=== PATIENT | female | born 1995 | race Caucasian/White ===

== ENCOUNTER 2020-08-23 01:45 | Observation (INO) | payer MEDICAID ==
[~2020-08-23] VITALS: Ht 160 cm; Wt 122.5 kg
[2020-08-23] MEDS ORDERED: FOLI20CA PO (02:26)
[2020-08-23] MEDS ORDERED: ASPI-1497 PO (02:26)
[2020-08-23] MEDS ORDERED: PREN-182 PO (02:26)
== END 2020-08-23 03:50 | disposition home or self-care (01) ==
LOC: ER 01:45 → 8 EST LDRP 02:12
PROVIDERS: ADMIT Obstetrics & Gynecology; ATTEND Obstetrics & Gynecology
DX: O26.893 Other specified pregnancy related conditions, third trimester (principal); R10.10 Upper abdominal pain, unspecified; Z3A.28 28 weeks gestation of pregnancy
CPT/HCPCS: 59025; G0378; 99281

== ENCOUNTER 2021-09-18 03:52 | Emergency (ER) | payer MEDICAID, OTHER ==
[~2021-09-18] VITALS: Ht 157.5 cm; Wt 113.0 kg
[~2021-09-18 03:52] MED LIST: ASPI-1497 PO; FOLI20CA PO; IBUP-2028 PO; PREN-182 PO; T3 PO
[2021-09-18] MEDS ORDERED: MAGNESIUM/ALUMINUM HYDROXIDE/SIMETHICONE 30ML UDC PO STA (04:55)
[2021-09-18] MEDS ORDERED: FAMOTIDINE 20MG/2ML VIAL IV STA (04:55)
[2021-09-18] MEDS ORDERED: ONDANSETRON HCL 4MG/2ML INJ IV STA ×2 (04:55→07:05)
[2021-09-18] MEDS ORDERED: SODIUM CHLORIDE 0.9% 1,000 ML IV ONE (05:00)
[2021-09-18 05:30] LABS: BASOPHILS % 0.6 % (0.0-2.0); EOSINOPHILS % 0.4 % (0.0-5.0); HEMATOCRIT. 39.5 % (36.0-48.0); HEMOGLOBIN. 13.2 g/dL (12.0-16.0); LYMPHOCYTES % 12.2 % (20.0-50.0); MEAN CORPUSCULAR HEMOGLOBIN 28.1 pg (28.0-32.0); MEAN PLATELET VOLUME 7.9 fl (7.4-10.4); MONOCYTES % 6.1 % (2.0-8.0); NEUTROPHILS % 80.7 % (40.0-76.0); PLATELET 305 x1000/uL (130-400); RED CELL DISTRIBUTION WIDTH 14.4 % (11.6-14.6)
[2021-09-18 05:39] LABS: CHLORIDE 104 mEq/L (98-107); CLARITY URINE CLEAR (CLEAR); COLOR URINE YELLOW (YELLOW); KETONES URINE NEGATIVE (NEGATIVE); LEUKOCYTE ESTERASE URINE 1+ (NEGATIVE); NITRITE URINE NEGATIVE (NEGATIVE); OCCULT BLOOD URINE NEGATIVE (NEGATIVE); PROTEIN URINE NEGATIVE (NEGATIVE); SPECIFIC GRAVITY URINE 1.023 (1.005-1.030); UROBILINOGEN URINE 0.2 E.U./dL (0.2-1.0)
[2021-09-18 05:47] LABS: HCG SCREEN NEGATIVE
[2021-09-18 05:51] LABS: *AMPHETAMINES SCREEN URINE NEGATIVE (NEGATIVE); *BARBITURATES SCREEN URINE NEGATIVE (NEGATIVE)
[2021-09-18 05:52] LABS: *BENZODIAZEPINES SCREEN URINE NEGATIVE (NEGATIVE); *COCAINE SCREEN URINE NEGATIVE (NEGATIVE); CANNABINOID URINE SCREEN NEGATIVE (NEGATIVE); METHADONE URINE SCREEN NEGATIVE (NEGATIVE); OPIATES URINE SCREEN NEGATIVE (NEGATIVE); PHENCYCLIDINE URINE SCREEN NEGATIVE (NEGATIVE)
[2021-09-18] MEDS ORDERED: KETOROLAC 30MG/ML VIAL IV STA (07:05)
[2021-09-18 07:23] VITALS: BP 138/88
[2021-09-18] MEDS ORDERED: IBUP-2029 MT (07:55)
== END 2021-09-18 08:56 | disposition home or self-care (01) ==
LOC: ER 03:52
DX: K80.50 Calculus of bile duct without cholangitis or cholecystitis without obstruction (principal)
CPT/HCPCS: 36415; 76705; 80053; 80305; 81003; 81025; 83690; 84703; 85025; 96361; 96374; 96375; 96376; 99284; J1885; J2405; J3490; J7030

== ENCOUNTER 2021-11-08 15:58 | Emergency (ER) | payer MEDICAID, OTHER ==
[~2021-11-08] VITALS: Ht 160 cm; Wt 112.0 kg
[~2021-11-08 15:58] MED LIST changes: +IBUP-2029 MT
[2021-11-08] MEDS ORDERED: MAGNESIUM/ALUMINUM HYDROXIDE/SIMETHICONE 30ML UDC PO STA (17:35)
[2021-11-08] MEDS ORDERED: ACETAMINOPHEN 325MG TABLET PO STA (17:35)
[2021-11-08] MEDS ORDERED: VISCOUS LIDOCAINE 2% 15 ML UDC PO STA (17:35)
[2021-11-08] MEDS ORDERED: ONDANSETRON 4MG ODT PO ONE (17:45)
[2021-11-08 19:24] LABS: CLARITY URINE CLEAR (CLEAR); COLOR URINE YELLOW (YELLOW); KETONES URINE TRACE (NEGATIVE); LEUKOCYTE ESTERASE URINE 1+ (NEGATIVE); NITRITE URINE NEGATIVE (NEGATIVE); OCCULT BLOOD URINE NEGATIVE (NEGATIVE); PH URINE 7.5 (4.5-8.0); PROTEIN URINE TRACE (NEGATIVE); SPECIFIC GRAVITY URINE 1.025 (1.005-1.030)
[2021-11-08 19:42] LABS: BASOPHILS % 0.5 % (0.0-2.0); EOSINOPHILS % 0.1 % (0.0-5.0); HEMATOCRIT. 40.5 % (36.0-48.0); HEMOGLOBIN. 13.6 g/dL (12.0-16.0); LYMPHOCYTES % 11.5 % (20.0-50.0); MEAN CORPUSCULAR HEMOGLOBIN 28.2 pg (28.0-32.0); MEAN CORPUSCULAR VOLUME 83.8 fL (81.0-99.0); MEAN PLATELET VOLUME 7.5 fl (7.4-10.4); MONOCYTES % 3.3 % (2.0-8.0); NEUTROPHILS % 84.6 % (40.0-76.0); PLATELET 289 x1000/uL (130-400); RED BLOOD CELL COUNT 4.84 mill/uL (4.2-5.4); RED CELL DISTRIBUTION WIDTH 13.9 % (11.6-14.6)
[2021-11-08 19:47] LABS: CHLORIDE 106 mEq/L (98-107)
[2021-11-08 19:51] LABS: HCG SCREEN NEGATIVE
[2021-11-08] MEDS ORDERED: IBUP-2028 MT (20:39)
[2021-11-08 21:18] VITALS: BP 132/84
== END 2021-11-08 21:18 | disposition home or self-care (01) ==
LOC: ER 16:05
DX: K80.20 Calculus of gallbladder without cholecystitis without obstruction (principal); R03.0 Elevated blood-pressure reading, without diagnosis of hypertension
CPT/HCPCS: 36415; 76705; 80053; 81003; 81025; 83690; 84703; 85025; 99284; Q0162

== ENCOUNTER 2021-12-11 15:37 | Emergency (ER) | payer BC, MEDICAID ==
[~2021-12-11] VITALS: Ht 172.7 cm; Wt 125.0 kg
[~2021-12-11 15:37] MED LIST changes: +IBUP-2028 MT
[2021-12-11] MEDS ORDERED: ACETAMINOPHEN 325MG TABLET PO ONE (16:30)
[2021-12-11 16:40] LABS: CLARITY URINE CLOUDY (CLEAR); COLOR URINE YELLOW (YELLOW); KETONES URINE TRACE (NEGATIVE); LEUKOCYTE ESTERASE URINE 2+ (NEGATIVE); NITRITE URINE NEGATIVE (NEGATIVE); OCCULT BLOOD URINE NEGATIVE (NEGATIVE); PROTEIN URINE NEGATIVE (NEGATIVE); SPECIFIC GRAVITY URINE 1.024 (1.005-1.030)
[2021-12-11 16:49] LABS: BASOPHILS % 1.1 % (0.0-2.0); EOSINOPHILS % 1.6 % (0.0-5.0); HEMATOCRIT. 38.5 % (36.0-48.0); HEMOGLOBIN. 13.1 g/dL (12.0-16.0); LYMPHOCYTES % 28.1 % (20.0-50.0); MEAN CORPUSCULAR HEMOGLOBIN 28.9 pg (28.0-32.0); MEAN CORPUSCULAR VOLUME 84.9 fL (81.0-99.0); MEAN PLATELET VOLUME 7.5 fl (7.4-10.4); MONOCYTES % 7.4 % (2.0-8.0); NEUTROPHILS % 61.8 % (40.0-76.0); PLATELET 290 x1000/uL (130-400); RED BLOOD CELL COUNT 4.53 mill/uL (4.2-5.4)
[2021-12-11 16:57] LABS: CHLORIDE 108 mEq/L (98-107)
[2021-12-11 17:21] LABS: B-HCG QUANTITATIVE 1292 mIU/mL (<3)
[2021-12-11] MEDS ORDERED: CEPH500C2 MT (18:41)
[2021-12-11 19:19] VITALS: BP 124/78
== END 2021-12-11 19:23 | disposition home or self-care (01) ==
LOC: ER 15:37
DX: O23.41 Unspecified infection of urinary tract in pregnancy, first trimester (principal); N39.0 Urinary tract infection, site not specified; Z3A.01 Less than 8 weeks gestation of pregnancy
CPT/HCPCS: 36415; 76801; 80053; 81003; 81025; 84702; 85025; 86850; 86900; 99284

== ENCOUNTER 2022-09-06 22:13 | Emergency (ER) | payer BC, MEDICAID ==
[~2022-09-06] VITALS: Ht 160 cm; Wt 118.0 kg
[~2022-09-06 22:13] MED LIST changes: +CEPH500C2 MT
[2022-09-06 22:25] VITALS: BP 144/102
[2022-09-07 01:02] LABS: BASOPHILS % 0.8 % (0.0-2.0); EOSINOPHILS % 3.9 % (0.0-5.0); HEMATOCRIT. 39.3 % (36.0-48.0); HEMOGLOBIN. 13.1 g/dL (12.0-16.0); LYMPHOCYTES % 35.3 % (20.0-50.0); MEAN CORPUSCULAR HEMOGLOBIN 29.7 pg (28.0-32.0); MEAN CORPUSCULAR VOLUME 88.8 fL (81.0-99.0); MEAN PLATELET VOLUME 7.9 fl (7.4-10.4); PLATELET 269 x1000/uL (130-400); RED BLOOD CELL COUNT 4.43 mill/uL (4.2-5.4); RED CELL DISTRIBUTION WIDTH 13.4 % (11.6-14.6)
[2022-09-07 01:19] LABS: CHLORIDE 104 mEq/L (98-107)
[2022-09-07 01:28] LABS: B-HCG QUANTITATIVE < 1 mIU/mL (<3)
[2022-09-07] MEDS ORDERED: ACETAMINOPHEN 325MG TABLET PO ONE (02:00)
== END 2022-09-07 02:11 | disposition home or self-care (01) ==
LOC: ER 22:13
DX: O72.2 Delayed and secondary postpartum hemorrhage (principal)
CPT/HCPCS: 36415; 76830; 76856; 80053; 81025; 84702; 85025; 86850; 86870; 86900; 99284

== ENCOUNTER 2023-04-30 22:39 | Emergency (ER) | payer BC, MEDICAID ==
[~2023-04-30] VITALS: Ht 160 cm; Wt 120.0 kg
[2023-04-30 22:50] VITALS: O2SAT 99
[2023-04-30 23:38] LABS: BASOPHILS % 0.3 % (0.0-2.0); EOSINOPHILS % 1.5 % (0.0-5.0); HEMATOCRIT. 38.3 % (36.0-48.0); HEMOGLOBIN. 12.5 g/dL (12.0-16.0); LYMPHOCYTES % 22.4 % (20.0-50.0); MEAN CORPUSCULAR HEMOGLOBIN 27.4 pg (28.0-32.0); MEAN CORPUSCULAR VOLUME 84.3 fL (81.0-99.0); MEAN PLATELET VOLUME 7.5 fl (7.4-10.4); MONOCYTES % 4.6 % (2.0-8.0); NEUTROPHILS % 71.2 % (40.0-76.0); PLATELET 334 x1000/uL (130-400); RED BLOOD CELL COUNT 4.54 mill/uL (4.2-5.4); RED CELL DISTRIBUTION WIDTH 13.7 % (11.6-14.6)
[2023-04-30 23:39] LABS: CHLORIDE 108 mEq/L (98-107)
[2023-04-30 23:56] LABS: HCG SCREEN NEGATIVE
[2023-05-01 00:28] LABS: CLARITY URINE TURBID (CLEAR); COLOR URINE BLOODY (YELLOW); SPECIFIC GRAVITY URINE 1.033 (1.005-1.030)
[2023-05-01 00:29] LABS: KETONES URINE 1+ (NEGATIVE); NITRITE URINE POSITIVE (NEGATIVE); OCCULT BLOOD URINE 1+ (NEGATIVE); PROTEIN URINE 2+ (NEGATIVE); UROBILINOGEN URINE 0.2 E.U./dL (0.2-1.0)
[2023-05-01 00:30] LABS: LEUKOCYTE ESTERASE URINE 3+ (NEGATIVE)
[2023-05-01] MEDS ORDERED: KETOROLAC 60MG/2ML VIAL IM ONE (00:30)
[2023-05-01] MEDS ORDERED: CEPHALEXIN 250MG CAPSULE PO ONE (00:45)
[2023-05-01] MEDS ORDERED: HYDROCODONE/ACETAMINOPHEN 5/325MG TABLET PO ONE (02:45)
[2023-05-01] MEDS ORDERED: CEPH500C2 MT (05:33)
[2023-05-01] MEDS ORDERED: IBUP-2029 MT (05:33)
[2023-05-01 05:40] VITALS: BP 136/78; PULSE 80; RESP 16; TEMP 98.7
== END 2023-05-01 05:40 | disposition home or self-care (01) ==
LOC: ER 22:39
DX: R10.30 Lower abdominal pain, unspecified (principal); N39.0 Urinary tract infection, site not specified; I10 Essential (primary) hypertension
CPT/HCPCS: 36415; 74176; 76830; 76856; 80053; 81003; 81025; 84703; 85025; 96372; 99285; J1885

== ENCOUNTER 2025-04-13 23:38 | Emergency (ER) | payer MEDICAID ==
[~2025-04-13] VITALS: Ht 162.6 cm; Wt 113.0 kg
[2025-04-14 00:33] VITALS: TEMP 36.6; O2SAT 100
[2025-04-14] MEDS ORDERED: LIDO700A30 TP (05:03)
[2025-04-14 05:10] VITALS: BP 136/85; PULSE 65; RESP 18; O2SAT 100
== END 2025-04-14 05:22 | disposition home or self-care (01) ==
LOC: ER 23:38
DX: M25.572 Pain in left ankle and joints of left foot (principal); K40.90 Unilateral inguinal hernia, without obstruction or gangrene, not specified as recurrent; Z90.49 Acquired absence of other specified parts of digestive tract; Z79.1 Long term (current) use of non-steroidal anti-inflammatories (NSAID); Z98.890 Other specified postprocedural states
CPT/HCPCS: 73600; 74176; 81025; 99284